=== PATIENT | female | born 1955 | race Hispanic/Latino ===

== ENCOUNTER 2016-09-11 09:36 | Observation (INO) | payer OTHER ==
[2016-09-11 09:38] VITALS: O2SAT 99; BMI 33.8
[2016-09-11] MEDS ORDERED: Sodium Chloride 0.9% 1,000 ML IV STA (09:55)
--- NOTE | 2016-09-11 10:10 | ED PDOC ---
Upper Extremity Pain/Injury Time Seen by Provider: 09/11/16 09:40 Chief Complaint (Nursing): Upper Extremity Problem/Injury Chief Complaint (Provider): Upper Extremity Problem/Injury History Per: Patient History/Exam Limitations: no limitations Onset/Duration Of Symptoms: Hrs Current Symptoms Are (Timing): Still Present Quality: "Pain" Severity: Moderate Additional Complaint(s): Patient is a 61 year old female who presents to ED for right shoulder pain s/p fall this morning. Patient states she stuck her right arm out to brace her fall , landed on her out stretched hand with immediate pain to the right shoulder. Denies other injury. Notes history of surgery to the left arm. Past Medical History Reviewed: Historical Data, Nursing Documentation, Vital Signs Vital Signs: Last Vital Signs Temp 97 F L 09/11/16 09:37 Pulse 72 09/11/16 09:37 Resp BP 147/105 H 09/11/16 09:37 Pulse Ox 99 09/11/16 09:37 - Medical History PMH: Hypothyroidism - Surgical History Surgical History: No Surg Hx - Family History Family History: States: No Known Family Hx - Living Arrangements Living Arrangements: With Family - Home Medications Home Medications: Ambulatory Orders Medication Instructions Recorded Thyroid,Pork [Wp Thyroid] 65 mg PO DAILY 09/11/16 oxyCODONE/Acetaminophen [Percocet 1 tab PO Q6H PRN #6 tab 09/11/16 5/325 mg Tab] - Allergies Allergies/Adverse Reactions: Allergies Allergy/AdvReac Type Severity Reaction Status Date / Time Penicillins Allergy RASH Verified 09/11/16 09:46 Review of Systems Constitutional: Negative for: Weakness Eyes: Negative for: Vision Change Cardiovascular: Negative for: Chest Pain Gastrointestinal: Negative for: Nausea, Vomiting Musculoskeletal: Positive for: Shoulder Pain. Negative for: Neck Pain, Back Pain Skin: Negative for: Rash, Bruising Neurological: Negative for: Weakness, Numbness Physical Exam - Reviewed Nursing Documentation Reviewed: Yes Vital Signs Reviewed: Yes - Physical Exam Appears: Positive for: Non-toxic, No Acute Distress Head Exam: Positive for: ATRAUMATIC, NORMAL INSPECTION Skin: Positive for: Normal Color, Warm Eye Exam: Positive for: Normal appearance Neck: Positive for: Normal, Painless ROM, Supple Extremity: Positive for: Normal ROM Neurologic/Psych: Positive for: Alert, Oriented. Negative for: Motor/Sensory Deficits - Laboratory Results Result Diagrams: 09/11/16 10:32 09/11/16 10:32 - ECG O2 Sat by Pulse Oximetry: 99 (RA) Pulse Ox Interpretation: Normal - CT Scan/US Upper Extremity CT Other Rad Studies (CT/US): Interpreted By Me, Read By Radiologist, Radiology Report Reviewed Medical Decision Making Medical Decision Making: Time: 0950 Initial impression: Shoulder injury r/o fracture and dislocation Initial plan: -- Type and screen -- CMP -- CBC -- PT/PTT -- NSF and Morphine -- Xray: Shoulder, humerus and forearm -- Upper Extremity CT Code ortho called and Morphine IV ordered immediately for pain control. Time: 1230 Xray results reviewed Shoulder PROCEDURE: Radiographs of the Right Shoulder HISTORY: fall COMPARISON: September 11, 2016. FINDINGS: BONES: Impacted fracture at the junction of the humeral head and neck. Avulsion fracture of the greater tuberosity. JOINTS: Preserved glenohumeral and acromioclavicular joints. SOFT TISSUES: Normal. OTHER FINDINGS: None. IMPRESSION: Acute, comminuted fracture proximal right humerus, avulsion of greater tuberosity noted. Forearm PROCEDURE: Radiographs of the Right Forearm HISTORY: sp fall COMPARISON: September 11, 2016. . TECHNIQUE: Frontal and lateral views obtained. FINDINGS: BONES: No acute fractures of the right radius or ulna. JOINT SPACES: Unremarkable. OTHER FINDINGS: None. IMPRESSION: Unremarkable radiographs of the right forearm. Humerus PROCEDURE: Radiographs of the right humerus. HISTORY: fall COMPARISON: September 11, 2016. FINDINGS: BONES: Known comminuted fracture proximal humerus. Remaining humerus is within normal limits. SOFT TISSUES: Normal. OTHER FINDINGS: None. IMPRESSION: Acute comminuted fracture proximal right humerus. sling placed Discussed results with patient Dr. Parrish contacted, awaiting call back [address] Parrish pt can get CT and then assess whether this is surgical management 14:[address] Results FINDINGS: Impacted, comminuted fracture of the proximal right humerus traversing the humeral neck and humeral head. Soft tissue swelling attests to the acuity of the fracture. Avulsion of the capitellum noted. This appears to be 1 of 2 large avulsed fragments from the humeral head. Preservation of the relation between the humeral head and glenoid. No acromial or clavicular abnormalities identified. Unremarkable scaphoid. No abnormalities with respect to adjacent ribs or underlying visualized pulmonary parenchyma. IMPRESSION: Acute, comminuted fracture through the proximal humerus. The fracture has a large transverse component at the junction of the humeral head and neck. Avulsed fragments including the capitellum. Preservation glenohumeral relationship. No scapular abnormalities. 16:50 Upon provider reevaluation patient is feeling better, is medically stable, and requires no further treatment in the emergency department at this time. Patient will be discharged home with a prescription for Percocet. Counseling was provided and all questions were answered regarding diagnosis and need for follow up with Dr. Parrish at his office in 1-2 days. Patient is in agreement with provider's discharge plan and was prompted to return if their symptoms persist or worsen. Clinical Impression: Right shoulder fracture, humerus fracture Scribe Attestation: Documented by Holly Kimble and Adrian Cervantes, acting as a scribe for Trudy Lizama MD. Scribe Attestation: All medical record entries made by the Scribe were at my direction and personally dictated by me. I have reviewed the chart and agree that the record accurately reflects my personal performance of the history, physical exam, medical decision making, and the department course for this patient. I have also personally directed, reviewed, and agree with the discharge instructions and disposition. Disposition - Clinical Impression Clinical Impression: Shoulder fracture, right, Humerus fracture - Disposition Disposition Time: 16:50 Condition: IMPROVED
[2016-09-11 10:35] LABS: BASO % 0.6 % (0.0-2.0); EOS # 0.1 K/uL (0.0-0.7); EOS % 1.9 % (0.0-4.0); HEMATOCRIT 38.4 % (34.0-47.0); LYMPH # 1.6 K/uL (1.0-4.3); LYMPH % 24.3 % (20.0-40.0); MEAN CORPUSCULAR HGB CONC 32.9 g/dL (33.0-37.0); MEAN PLATELET VOLUME 9.9 fl (7.2-11.7); MONO # 0.5 K/uL (0.0-0.8); MONO % 7.6 % (0.0-10.0); NEUT # 4.3 K/uL (1.8-7.0); NEUT % 65.6 % (50.0-75.0); NRBC % 0.2 % (0.0-0.0); RED CELL DISTRIBUTION WIDTH 14.9 % (11.5-14.5); WHITE BLOOD COUNT 6.5 K/uL (4.8-10.8)
[2016-09-11 10:49] LABS: ALB/GLOB RATIO 1.3 (1.0-2.1); ALKALINE PHOSPHATASE 70 U/L (38-126); ALT/SGPT 26 U/L (9-52); AST/SGOT 33 U/L (14-36); BILIRUBIN,TOTAL 0.6 mg/dl (0.2-1.3); BLOOD UREA NITROGEN 12 mg/dl (7-17); CALCIUM 8.8 mg/dL (8.4-10.2); CARBON DIOXIDE 28 mmol/L (22-30); CHLORIDE 105 mmol/L (98-107); GFR AFRICAN-AMERICAN > 60; GLUCOSE,RANDOM 93 mg/dL (65-105); SODIUM 141 mmol/l (132-148); TOTAL PROTEIN 7.1 G/DL (6.3-8.2)
[2016-09-11 10:59] LABS: PARTIAL THROMBOPLASTIN TIME 26.8 SECONDS (23.3-32.5)
--- NOTE | 2016-09-11 12:23 | RAD ---
PROCEDURE: Radiographs of the right humerus. HISTORY: fall COMPARISON: September 11, 2016. FINDINGS: BONES: Known comminuted fracture proximal humerus. Remaining humerus is within normal limits. SOFT TISSUES: Normal. OTHER FINDINGS: None. IMPRESSION: Acute comminuted fracture proximal right humerus.
--- NOTE | 2016-09-11 12:23 | RAD ---
PROCEDURE: Radiographs of the Right Shoulder HISTORY: fall COMPARISON: September 11, 2016. FINDINGS: BONES: Impacted fracture at the junction of the humeral head and neck. Avulsion fracture of the greater tuberosity. JOINTS: Preserved glenohumeral and acromioclavicular joints. SOFT TISSUES: Normal. OTHER FINDINGS: None. IMPRESSION: Acute, comminuted fracture proximal right humerus, avulsion of greater tuberosity noted.
--- NOTE | 2016-09-11 12:24 | RAD ---
PROCEDURE: Radiographs of the Right Forearm HISTORY: sp fall COMPARISON: September 11, 2016. . TECHNIQUE: Frontal and lateral views obtained. FINDINGS: BONES: No acute fractures of the right radius or ulna. JOINT SPACES: Unremarkable. OTHER FINDINGS: None. IMPRESSION: Unremarkable radiographs of the right forearm.
--- NOTE | 2016-09-11 14:56 | CT ---
PROCEDURE: CT right upper extremity HISTORY: right shoulder fracture pls assess COMPARISON: September 11, 2016. TECHNIQUE: 1.25 mm axial acquisition and display. Coronal and sagittal reconstructions. Radiation dosimetry DLP (mGy-cm) 307.33 FINDINGS: Impacted, comminuted fracture of the proximal right humerus traversing the humeral neck and humeral head. Soft tissue swelling attests to the acuity of the fracture. Avulsion of the capitellum noted. This appears to be 1 of 2 large avulsed fragments from the humeral head Preservation of the relation between the humeral head and glenoid. No acromial or clavicular abnormalities identified. Unremarkable scaphoid. No abnormalities with respect to adjacent ribs or underlying visualized pulmonary parenchyma. IMPRESSION: Acute, comminuted fracture through the proximal humerus. The fracture has a large transverse component at the junction of the humeral head and neck. Avulsed fragments including the capitellum. Preservation glenohumeral relationship. No scapular abnormalities
[2016-09-11 16:53] VITALS: BP 130/87; PULSE 87; RESP 16; TEMP 97.2
== END 2016-09-11 17:01 | disposition home or self-care (01) ==
LOC: H.ER 09:36 → H.EROBSV 11:42
PROVIDERS: ADMIT Emergency Medicine; ATTEND Emergency Medicine
DX: S42.251A Displaced fracture of greater tuberosity of right humerus, initial encounter for closed fracture (principal); E03.9 Hypothyroidism, unspecified; W18.39XA Other fall on same level, initial encounter; Z88.0 Allergy status to penicillin; Y92.9 Unspecified place or not applicable